=== PATIENT | male | born 1955 | race Two or more races ===

== ENCOUNTER 2021-07-31 13:54 | Inpatient (IN) | payer OTHER ==
[2021-07-31] MEDS ORDERED: VANCOMYCIN 1 GM in D5W (PRE-DOCKED) 1,000 MG/250 ML IVPB ONE (14:40)
[2021-07-31] MEDS ORDERED: PIPERACILLIN/TAZOB 2.25 GM 2.25 GM in DEXTROSE 5%-WATER - 50 ML IVPB ONE (14:40)
[2021-07-31] MEDS ORDERED: VANCOMYCIN/WATER 1,250 MG/250 ML BAG IVPB ONE (14:45)
[2021-07-31] MEDS ORDERED: PIPERACILLIN/TAZOB 4.5 GM 4.5 GM in DEXTROSE 5%-WATER 100 ML IVPB ONE (14:45)
[2021-07-31] MEDS ORDERED: PIPERACILLIN/TAZOB 4.5 GM 4.5 GM/100 ML BAG IVPB ONE (14:58)
[2021-07-31 15:05] LABS: HEMATOCRIT 21.8 % (35.4-49); MCH 29.3 pg (25.7-33.7); MCHC 31.7 g/dl (32.0-35.9); MEAN CELL VOLUME 92.6 fl (80-96); MEAN PLT VOLUME 8.8 fl (7.5-11.1); PLATELET COUNT 131 10^3/uL (134-434); RBC 2.35 M/mm3 (4.00-5.60); RDW 15.8 % (11.9-15.9); WHITE BLOOD COUNT 16.6 K/mm3 (4.0-10.0)
[2021-07-31 15:06] LABS: VENOUS BASE EXCESS -3.6 mmol/L (-2-2); VENOUS O2 SATURATION 82.6 % (70-80)
[2021-07-31 15:07] LABS: VENOUS PH 7.195 (7.310-7.410)
[2021-07-31 15:11] LABS: INR 1.05 (0.83-1.09); PROTHROMBIN TIME (PATIENT) 12.1 SEC (9.7-13.0)
[2021-07-31 15:12] LABS: HEMOGLOBIN 6.9 GM/dL (11.7-16.9)
[2021-07-31 15:27] LABS: ALBUMIN 1.9 g/dl (3.4-5.0); BLOOD UREA NITROGEN 73.9 mg/dL (7-18)
[2021-07-31 15:30] LABS: CREATININE 3.4 mg/dL (0.55-1.3)
[2021-07-31] MEDS ORDERED: ALBUTEROL SO4 2.5/IPRATROPIUM 0.5 INH SOL 3 ML VIAL.NEB. NEB ONE ×4 (15:30→16:12)
[2021-07-31 15:32] LABS: BILIRUBIN,TOTAL 0.5 mg/dL (0.2-1); TOT PROT 7.6 g/dl (6.4-8.2)
[2021-07-31 15:39] LABS: ANISOCYTOSIS 2+; MACROCYTOSIS 1+; PLATELET ESTIMATE NORMAL; TOXIC GRANULATION 1+
[2021-07-31 17:12] LABS: ARTERIAL BLD GAS O2 SATURATION 99.6 % (95-98); ARTERIAL BLOOD GAS BASE EXCESS 0 mmol/L (-2-2); ARTERIAL BLOOD GAS PO2 351.6 mmHg (80-100)
[2021-07-31 17:15] LABS: ARTERIAL BLOOD GAS pH 7.142 (7.350-7.450)
[2021-07-31 18:27] LABS: BASO % 1.4 % (0-2.0); EOS % 0.1 % (0-4.5); HEMATOCRIT 21.8 % (35.4-49); LYMPH % 4.2 % (8-40); MCH 28.9 pg (25.7-33.7); MCHC 31.2 g/dl (32.0-35.9); MEAN CELL VOLUME 92.7 fl (80-96); MEAN PLT VOLUME 8.9 fl (7.5-11.1); MONO % 6.8 % (3.8-10.2); NEUT % 87.5 % (42.8-82.8); PLATELET COUNT 126 10^3/uL (134-434); RBC 2.36 M/mm3 (4.00-5.60); RDW 15.5 % (11.9-15.9); WHITE BLOOD COUNT 14.2 K/mm3 (4.0-10.0)
[2021-07-31 18:33] LABS: HEMOGLOBIN 6.8 GM/dL (11.7-16.9)
[2021-07-31] MEDS ORDERED: PIPERACILLIN/TAZOB 3.375 GM 3.375 GM in DEXTROSE 5%-WATER - 50 ML IVPB SCH ×2 (20:15→22:00)
[2021-07-31 21:42] LABS: ARTERIAL BLD GAS O2 SATURATION 89.2 % (95-98); ARTERIAL BLOOD GAS BASE EXCESS -1.2 mmol/L (-2-2); ARTERIAL BLOOD GAS PO2 65.6 mmHg (80-100); ARTERIAL BLOOD GAS pH 7.254 (7.350-7.450)
[2021-07-31 21:56] LABS: VENT MODE A/C; VENT RATE 15
[2021-07-31] MEDS ORDERED: PIPERACILLIN/TAZOB 3.375 GM 3.375 GM/50 ML BAG IVPB ONE (22:54)
[2021-07-31] MEDS ORDERED: levETIRAcetam 500 MG/5 ML INJECTION VIAL IVPB ONE ×2 (22:54→23:03)
[2021-07-31] MEDS: SODIUM CHLORIDE 1,000 ML IV SCH (23:38)
[2021-08-01 07:27] LABS: HEMATOCRIT 22.2 % (35.4-49); HEMOGLOBIN 7.1 GM/dL (11.7-16.9); MCH 29.7 pg (25.7-33.7); MCHC 32.2 g/dl (32.0-35.9); MEAN CELL VOLUME 92.3 fl (80-96); MEAN PLT VOLUME 8.4 fl (7.5-11.1); PLATELET COUNT 118 10^3/uL (134-434); RBC 2.41 M/mm3 (4.00-5.60); RDW 15.1 % (11.9-15.9); WHITE BLOOD COUNT 9.6 K/mm3 (4.0-10.0)
[2021-08-01 07:40] LABS: CALCIUM 8.8 mg/dL (8.5-10.1)
[2021-08-01 07:41] LABS: BLOOD UREA NITROGEN 87.9 mg/dL (7-18); MAGNESIUM 2.9 mg/dL (1.8-2.4)
[2021-08-01 07:44] LABS: CREATININE 3.7 mg/dL (0.55-1.3); PHOSPHOROUS 4.7 mg/dL (2.5-4.9)
[2021-08-01] MEDS ORDERED: PIPERACILLIN/TAZOBACTAM 2.25 GM VIAL IVPB ONE ×4 (09:21→20:49)
[2021-08-01] MEDS ORDERED: DEXTROSE 5%-WATER - 50 ML IVPB ONE ×4 (09:21→20:49)
[2021-08-01] MEDS: AMIODARONE HCL 200 MG TABLET PEG SCH (09:30)
[2021-08-01] MEDS: ASPIRIN 81 MG CHEWABLE TABLETS PEG SCH (09:30)
[2021-08-01] MEDS: MUPIROCIN 2% TOPICAL OINTMENT FOR DECOLONIZATION NS SCH ×2 (09:30→21:14)
[2021-08-01] MEDS: PIPERACILLIN/TAZOB 2.25 GM 2.25 GM in DEXTROSE 5%-WATER - 50 ML IVPB SCH ×3 (09:30→17:57)
[2021-08-01 09:51] LABS: ANISOCYTOSIS 0; MACROCYTOSIS 0; PLATELET ESTIMATE DECREASED
[2021-08-01] MEDS ORDERED: PANTOPRAZOLE SODIUM 40 MG in SODIUM CHLORIDE 100 ML IVPB SCH (10:00)
[2021-08-01] MEDS ORDERED: PIPERACILLIN/TAZOB 2.25 GM 2.25 GM in DEXTROSE 5%-WATER - 50 ML IVPB SCH (10:00)
[2021-08-01] MEDS ORDERED: ASPIRIN 81 MG CHEWABLE TABLETS PO SCH (10:00)
[2021-08-01] MEDS ORDERED: PANTOPRAZOLE SODIUM 40 MG VIAL IVPB SCH (12:00)
[2021-08-01] MEDS: PANTOPRAZOLE SODIUM 40 MG VIAL IVPUSH SCH (12:22)
[2021-08-01] MEDS ORDERED: ASPIRIN 81 MG CHEWABLE TABLETS PO ONE (19:01)
[2021-08-01] MEDS: SODIUM CHLORIDE 1,000 ML IV SCH (21:13)
[2021-08-01] MEDS: CHLORHEXIDINE GLUCONATE 4% CLEANSER FOR DECOLONIZATION TP SCH (21:14)
[2021-08-01] MEDS: ATORVASTATIN CA 40 MG TABLET (FP) PEG SCH (21:14)
[2021-08-02] MEDS ORDERED: PIPERACILLIN/TAZOBACTAM 2.25 GM VIAL IVPB ONE ×2 (00:58→19:01)
[2021-08-02] MEDS ORDERED: DEXTROSE 5%-WATER - 50 ML IVPB ONE ×2 (00:58→19:01)
[2021-08-02] MEDS: PIPERACILLIN/TAZOB 2.25 GM 2.25 GM in DEXTROSE 5%-WATER - 50 ML IVPB SCH ×3 (01:16→19:04)
[2021-08-02] MEDS ORDERED: ALBUTEROL SO4 2.5/IPRATROPIUM 0.5 INH SOL 3 ML VIAL.NEB. NEB PRN (06:15)
[2021-08-02 07:12] LABS: HEMATOCRIT 20.9 % (35.4-49); MCH 29.2 pg (25.7-33.7); MCHC 31.7 g/dl (32.0-35.9); MEAN CELL VOLUME 92.1 fl (80-96); MEAN PLT VOLUME 8.9 fl (7.5-11.1); PLATELET COUNT 139 10^3/uL (134-434); RBC 2.27 M/mm3 (4.00-5.60); RDW 15.9 % (11.9-15.9); WHITE BLOOD COUNT 11.9 K/mm3 (4.0-10.0)
[2021-08-02 07:16] LABS: MAGNESIUM 2.9 mg/dL (1.8-2.4)
[2021-08-02 07:17] LABS: BLOOD UREA NITROGEN 102.3 mg/dL (7-18); INR 1.1 (0.83-1.09); PROTHROMBIN TIME (PATIENT) 12.7 SEC (9.7-13.0)
[2021-08-02 07:20] LABS: CREATININE 4.3 mg/dL (0.55-1.3); PHOSPHOROUS 4.9 mg/dL (2.5-4.9)
[2021-08-02 07:28] LABS: HEMOGLOBIN 6.6 GM/dL (11.7-16.9)
[2021-08-02] MEDS: THIAMINE HCL 100 MG TABLET (FP) NR SCH (11:04)
[2021-08-02] MEDS: FOLIC ACID 1 MG TABLET (FP) PEG SCH (11:04)
[2021-08-02] MEDS: ASPIRIN 81 MG CHEWABLE TABLETS PEG SCH (11:04)
[2021-08-02] MEDS: AMIODARONE HCL 200 MG TABLET PEG SCH (11:04)
[2021-08-02] MEDS: PANTOPRAZOLE SODIUM 40 MG VIAL IVPUSH SCH (11:04)
[2021-08-02] MEDS: MUPIROCIN 2% TOPICAL OINTMENT FOR DECOLONIZATION NS SCH ×2 (11:04→22:04)
[2021-08-02] MEDS ORDERED: SODIUM CHLORIDE 250 ML IV PRN (19:34)
[2021-08-02] MEDS: CHLORHEXIDINE GLUCONATE 4% CLEANSER FOR DECOLONIZATION TP SCH (22:04)
[2021-08-02] MEDS: ATORVASTATIN CA 40 MG TABLET (FP) PEG SCH (22:04)
[2021-08-03] MEDS ORDERED: DEXTROSE 5%-WATER - 50 ML IVPB ONE ×4 (01:26→21:15)
[2021-08-03] MEDS ORDERED: PIPERACILLIN/TAZOBACTAM 2.25 GM VIAL IVPB ONE ×4 (01:26→21:15)
[2021-08-03] MEDS: PIPERACILLIN/TAZOB 2.25 GM 2.25 GM in DEXTROSE 5%-WATER - 50 ML IVPB SCH ×3 (01:26→17:14)
[2021-08-03 07:44] LABS: BASO % 1.4 % (0-2.0); EOS % 3.3 % (0-4.5); HEMATOCRIT 22.3 % (35.4-49); HEMOGLOBIN 7.4 GM/dL (11.7-16.9); LYMPH % 11.1 % (8-40); MCH 30.2 pg (25.7-33.7); MCHC 33.3 g/dl (32.0-35.9); MEAN CELL VOLUME 90.9 fl (80-96); MEAN PLT VOLUME 8.4 fl (7.5-11.1); MONO % 6.3 % (3.8-10.2); NEUT % 77.9 % (42.8-82.8); PLATELET COUNT 119 10^3/uL (134-434); RBC 2.46 M/mm3 (4.00-5.60); RDW 15.5 % (11.9-15.9); WHITE BLOOD COUNT 8.7 K/mm3 (4.0-10.0)
[2021-08-03 08:05] LABS: CHLORIDE 107 mmol/L (98-107); SODIUM 142 mmol/L (136-145)
[2021-08-03 08:13] LABS: CALCIUM 9.1 mg/dL (8.5-10.1)
[2021-08-03 08:14] LABS: ALBUMIN 1.7 g/dl (3.4-5.0); ANION GAP 11 MMOL/L (8-16); CO2 25 mmol/L (21-32); GLUCOSE,RANDOM 94 mg/dL (74-106); MAGNESIUM 3.1 mg/dL (1.8-2.4)
[2021-08-03 08:17] LABS: CREATININE 4.9 mg/dL (0.55-1.3); SGOT/AST 7 U/L (15-37); SGPT/ALT 10 U/L (13-61)
[2021-08-03 08:19] LABS: BILIRUBIN,TOTAL 0.6 mg/dL (0.2-1); TOT PROT 6.6 g/dl (6.4-8.2)
[2021-08-03 08:20] LABS: ALK PHOS 128 U/L (45-117)
[2021-08-03 08:24] LABS: BLOOD UREA NITROGEN 119.8 mg/dL (7-18)
[2021-08-03 10:01] VITALS: BMI 21.4
[2021-08-03] MEDS: PANTOPRAZOLE SODIUM 40 MG VIAL IVPUSH SCH (10:05)
[2021-08-03] MEDS: FOLIC ACID 1 MG TABLET (FP) PEG SCH (10:05)
[2021-08-03] MEDS: ASPIRIN 81 MG CHEWABLE TABLETS PEG SCH (10:05)
[2021-08-03] MEDS: AMIODARONE HCL 200 MG TABLET PEG SCH (10:05)
[2021-08-03] MEDS: THIAMINE HCL 100 MG TABLET (FP) NR SCH (10:05)
[2021-08-03] MEDS: MUPIROCIN 2% TOPICAL OINTMENT FOR DECOLONIZATION NS SCH ×2 (10:06→21:26)
[2021-08-03] MEDS ORDERED: RAPID SEQUENCE INTUBATION KIT NR ONE (11:23)
[2021-08-03] MEDS ORDERED: MIDAZOLAM HCL 5 MG/1 ML Single Dose Vial ONE (11:24)
[2021-08-03] MEDS ORDERED: ROCURONIUM BROMIDE 50 MG/5 ML VIAL IV ONE (11:27)
[2021-08-03] MEDS ORDERED: MIDAZOLAM IN 0.9 % SOD.CHLORID 1 MG/1 ML PLAST..BAG ONE (12:14)
[2021-08-03] MEDS ORDERED: MIDAZOLAM 100 MG in SODIUM CHLORIDE 100 ML IVPB SCH (12:15)
[2021-08-03] MEDS ORDERED: MIDAZOLAM HCL 5 MG/1 ML Single Dose Vial IVPUSH ONE (12:15)
[2021-08-03] MEDS ORDERED: PROPOFOL 200 MG/20 ML VIAL IVPUSH ONE (12:15)
[2021-08-03] MEDS ORDERED: FLU VACC QS2021-22(6MOS UP)/PF 60 MCG/0.5 ML SYRINGE IM ONE (13:41)
[2021-08-03] MEDS ORDERED: PNEUMOC 13-VAL CONJ-DIP CRM/PF 0.5 ML DISP.SYRIN IM ONE (13:42)
[2021-08-03] MEDS: MIDAZOLAM IN 0.9 % SOD.CHLORID 100 MG/100 ML PLAST..BAG IVPB SCH (14:57)
[2021-08-03] MEDS: ATORVASTATIN CA 40 MG TABLET (FP) PEG SCH (21:21)
[2021-08-03] MEDS: CHLORHEXIDINE GLUCONATE 4% CLEANSER FOR DECOLONIZATION TP SCH (21:26)
[2021-08-04] MEDS: PIPERACILLIN/TAZOB 2.25 GM 2.25 GM in DEXTROSE 5%-WATER - 50 ML IVPB SCH ×2 (00:59→09:51)
[2021-08-04 07:32] LABS: BASO % 0.4 % (0-2.0); EOS % 5.5 % (0-4.5); HEMATOCRIT 20.3 % (35.4-49); LYMPH % 15.6 % (8-40); MCH 29.9 pg (25.7-33.7); MCHC 32.7 g/dl (32.0-35.9); MEAN CELL VOLUME 91.4 fl (80-96); MEAN PLT VOLUME 8.8 fl (7.5-11.1); MONO % 4.2 % (3.8-10.2); NEUT % 74.3 % (42.8-82.8); PLATELET COUNT 124 10^3/uL (134-434); RBC 2.22 M/mm3 (4.00-5.60); RDW 15.2 % (11.9-15.9); WHITE BLOOD COUNT 6.3 K/mm3 (4.0-10.0)
[2021-08-04 07:44] LABS: CHLORIDE 108 mmol/L (98-107); SODIUM 143 mmol/L (136-145)
[2021-08-04 07:46] LABS: ALBUMIN 1.5 g/dl (3.4-5.0); ANION GAP 14 MMOL/L (8-16); CALCIUM 8.9 mg/dL (8.5-10.1); CO2 21 mmol/L (21-32); GLUCOSE,RANDOM 69 mg/dL (74-106); MAGNESIUM 2.9 mg/dL (1.8-2.4)
[2021-08-04 07:49] LABS: CREATININE 5.6 mg/dL (0.55-1.3); PHOSPHOROUS 6.4 mg/dL (2.5-4.9); SGOT/AST 25 U/L (15-37); SGPT/ALT 15 U/L (13-61)
[2021-08-04 07:51] LABS: BILIRUBIN,TOTAL 0.6 mg/dL (0.2-1); TOT PROT 6.2 g/dl (6.4-8.2)
[2021-08-04 07:54] LABS: ALK PHOS 459 U/L (45-117); BLOOD UREA NITROGEN 125.9 mg/dL (7-18)
[2021-08-04 08:16] LABS: HEMOGLOBIN 6.6 GM/dL (11.7-16.9)
[2021-08-04] MEDS ORDERED: DEXTROSE 5%-WATER - 50 ML IVPB ONE (09:45)
[2021-08-04] MEDS ORDERED: PIPERACILLIN/TAZOBACTAM 2.25 GM VIAL IVPB ONE (09:45)
[2021-08-04] MEDS: PANTOPRAZOLE SODIUM 40 MG VIAL IVPUSH SCH (09:50)
[2021-08-04] MEDS: THIAMINE HCL 100 MG TABLET (FP) NR SCH (09:50)
[2021-08-04] MEDS: AMINO ACIDS/PROTEIN HYDROLYS 30 ML LIQUID.PKT PEG SCH (09:50)
[2021-08-04] MEDS: ASPIRIN 81 MG CHEWABLE TABLETS PEG SCH (09:50)
[2021-08-04] MEDS: VITAMIN B COMP W-C 1 EA TABLET (NEPHRO-VITE) PO SCH (09:50)
[2021-08-04] MEDS: AMIODARONE HCL 200 MG TABLET PEG SCH (09:50)
[2021-08-04] MEDS: FOLIC ACID 1 MG TABLET (FP) PEG SCH (09:50)
[2021-08-04] MEDS: MUPIROCIN 2% TOPICAL OINTMENT FOR DECOLONIZATION NS SCH ×2 (09:51→21:48)
[2021-08-04] MEDS ORDERED: SODIUM CHLORIDE 500 ML IV STA (10:09)
[2021-08-04] MEDS ORDERED: SODIUM CHLORIDE 1,000 ML IV SCH (12:15)
[2021-08-04] MEDS: MIDAZOLAM IN 0.9 % SOD.CHLORID 100 MG/100 ML PLAST..BAG IVPB SCH (13:30)
[2021-08-04 14:57] LABS: HEMATOCRIT 22.3 % (35.4-49); HEMOGLOBIN 7.4 GM/dL (11.7-16.9); MCH 29.6 pg (25.7-33.7); MCHC 33.2 g/dl (32.0-35.9); MEAN CELL VOLUME 89.1 fl (80-96); MEAN PLT VOLUME 8.1 fl (7.5-11.1); PLATELET COUNT 112 10^3/uL (134-434); RBC 2.51 M/mm3 (4.00-5.60); RDW 14.7 % (11.9-15.9); WHITE BLOOD COUNT 3.9 K/mm3 (4.0-10.0)
[2021-08-04] MEDS: CHLORHEXIDINE GLUCONATE 4% CLEANSER FOR DECOLONIZATION TP SCH (21:48)
[2021-08-04] MEDS: AMINO ACIDS 4.25%/D5W 1,000 ML IV SCH (21:48)
[2021-08-04] MEDS: ATORVASTATIN CA 40 MG TABLET (FP) PEG SCH (21:48)
[2021-08-05 07:04] LABS: BASO % 0.5 % (0-2.0); EOS % 7.9 % (0-4.5); HEMATOCRIT 23.5 % (35.4-49); HEMOGLOBIN 7.7 GM/dL (11.7-16.9); LYMPH % 16.6 % (8-40); MCH 29.5 pg (25.7-33.7); MCHC 32.6 g/dl (32.0-35.9); MEAN CELL VOLUME 90.5 fl (80-96); MEAN PLT VOLUME 8.9 fl (7.5-11.1); MONO % 7.6 % (3.8-10.2); NEUT % 67.4 % (42.8-82.8); PLATELET COUNT 117 10^3/uL (134-434); RBC 2.59 M/mm3 (4.00-5.60); WHITE BLOOD COUNT 4.8 K/mm3 (4.0-10.0)
[2021-08-05 07:17] LABS: ALBUMIN 1.4 g/dl (3.4-5.0); CALCIUM 7.8 mg/dL (8.5-10.1); MAGNESIUM 2.1 mg/dL (1.8-2.4)
[2021-08-05 07:20] LABS: CREATININE 2.7 mg/dL (0.55-1.3)
[2021-08-05 07:21] LABS: PHOSPHOROUS 3.6 mg/dL (2.5-4.9)
[2021-08-05 07:22] LABS: BILIRUBIN,TOTAL 0.5 mg/dL (0.2-1); TOT PROT 5.7 g/dl (6.4-8.2)
[2021-08-05] MEDS ORDERED: POTASSIUM CHLORIDE 20 MEQ PREMIX IVPB 100 ML IVPB ONE (08:19)
[2021-08-05 08:33] LABS: BLOOD UREA NITROGEN 46.6 mg/dL (7-18)
[2021-08-05] MEDS: AMINO ACIDS/PROTEIN HYDROLYS 30 ML LIQUID.PKT PEG SCH (09:55)
[2021-08-05] MEDS: AMIODARONE HCL 200 MG TABLET PEG SCH (09:55)
[2021-08-05] MEDS: VITAMIN B COMP W-C 1 EA TABLET (NEPHRO-VITE) PO SCH (09:55)
[2021-08-05] MEDS: KCL 10 MEQ IVPB 10 MEQ/100 ML INFUS.BAG IVPB SCH ×2 (09:55→11:00)
[2021-08-05] MEDS: PANTOPRAZOLE SODIUM 40 MG VIAL IVPUSH SCH (09:55)
[2021-08-05] MEDS: FOLIC ACID 1 MG TABLET (FP) PEG SCH (09:56)
[2021-08-05] MEDS: THIAMINE HCL 100 MG TABLET (FP) NR SCH (09:56)
[2021-08-05] MEDS: MUPIROCIN 2% TOPICAL OINTMENT FOR DECOLONIZATION NS SCH ×2 (09:56→23:12)
[2021-08-05] MEDS: PROPOFOL 1,000,000 MCG/100 ML VIAL IVPB SCH (09:56)
[2021-08-05] MEDS ORDERED: POTASSIUM CHLORIDE ORAL LIQUID 20 MEQ/15 ML PO ONE (13:00)
[2021-08-05] MEDS: AMINO ACIDS 4.25%/D5W 1,000 ML IV SCH (22:00)
[2021-08-05] MEDS: ATORVASTATIN CA 40 MG TABLET (FP) PEG SCH (23:00)
[2021-08-05] MEDS: CHLORHEXIDINE GLUCONATE 4% CLEANSER FOR DECOLONIZATION TP SCH (23:12)
[2021-08-06 06:55] LABS: BASO % 1.2 % (0-2.0); EOS % 7.6 % (0-4.5); HEMATOCRIT 22.8 % (35.4-49); HEMOGLOBIN 7.8 GM/dL (11.7-16.9); LYMPH % 18.8 % (8-40); MCH 30.5 pg (25.7-33.7); MCHC 33.9 g/dl (32.0-35.9); MEAN PLT VOLUME 8.3 fl (7.5-11.1); MONO % 7.6 % (3.8-10.2); NEUT % 64.8 % (42.8-82.8); PLATELET COUNT 99 10^3/uL (134-434); RBC 2.54 M/mm3 (4.00-5.60); RDW 14.8 % (11.9-15.9)
[2021-08-06] MEDS ORDERED: SODIUM CHLORIDE 250 ML IV PRN (07:00)
[2021-08-06 07:20] LABS: CALCIUM 8.2 mg/dL (8.5-10.1)
[2021-08-06 07:21] LABS: ALBUMIN 1.3 g/dl (3.4-5.0); BLOOD UREA NITROGEN 60.2 mg/dL (7-18)
[2021-08-06 07:24] LABS: BILIRUBIN,TOTAL 0.6 mg/dL (0.2-1); CREATININE 3.4 mg/dL (0.55-1.3); PHOSPHOROUS 4.6 mg/dL (2.5-4.9); TOT PROT 5.9 g/dl (6.4-8.2)
[2021-08-06] MEDS: AMINO ACIDS/PROTEIN HYDROLYS 30 ML LIQUID.PKT PEG SCH (07:55)
[2021-08-06] MEDS ORDERED: EPOETIN ALFA-EPBX 10,000 UNIT/ML VIAL IVPUSH ONE (08:30)
[2021-08-06] MEDS: PROPOFOL 1,000,000 MCG/100 ML VIAL IVPB SCH (09:50)
[2021-08-06] MEDS: AMIODARONE HCL 200 MG TABLET PEG SCH (11:17)
[2021-08-06] MEDS: FOLIC ACID 1 MG TABLET (FP) PEG SCH (11:18)
[2021-08-06] MEDS: VITAMIN B COMP W-C 1 EA TABLET (NEPHRO-VITE) PO SCH (11:18)
[2021-08-06] MEDS: THIAMINE HCL 100 MG TABLET (FP) NR SCH (11:19)
[2021-08-06] MEDS: PANTOPRAZOLE SODIUM 40 MG VIAL IVPUSH SCH (11:19)
[2021-08-06] MEDS: MIDAZOLAM IN 0.9 % SOD.CHLORID 100 MG/100 ML PLAST..BAG IVPB SCH (11:29)
[2021-08-06] MEDS ORDERED: POTASSIUM CHLORIDE ORAL LIQUID 20 MEQ/15 ML PO ONE (14:25)
[2021-08-06] MEDS: AMINO ACIDS 4.25%/D5W 1,000 ML IV SCH (23:00)
[2021-08-06] MEDS: CHLORHEXIDINE GLUCONATE 4% CLEANSER FOR DECOLONIZATION TP SCH (23:27)
[2021-08-06] MEDS: ATORVASTATIN CA 40 MG TABLET (FP) PEG SCH (23:27)
[2021-08-07 07:52] LABS: HEMATOCRIT 22.2 % (35.4-49); HEMOGLOBIN 7.4 GM/dL (11.7-16.9); MCH 30.2 pg (25.7-33.7); MCHC 33.4 g/dl (32.0-35.9); MEAN CELL VOLUME 90.3 fl (80-96); MEAN PLT VOLUME 8.6 fl (7.5-11.1); PLATELET COUNT 101 10^3/uL (134-434); RBC 2.46 M/mm3 (4.00-5.60); RDW 14.7 % (11.9-15.9); WHITE BLOOD COUNT 6.3 K/mm3 (4.0-10.0)
[2021-08-07 08:20] LABS: ALBUMIN 1.5 g/dl (3.4-5.0); CALCIUM 8.4 mg/dL (8.5-10.1); MAGNESIUM 1.8 mg/dL (1.8-2.4)
[2021-08-07 08:22] LABS: CREATININE 2.2 mg/dL (0.55-1.3); PHOSPHOROUS 2.4 mg/dL (2.5-4.9)
[2021-08-07 08:24] LABS: BILIRUBIN,TOTAL 0.4 mg/dL (0.2-1); TOT PROT 6.2 g/dl (6.4-8.2)
[2021-08-07 08:33] LABS: BLOOD UREA NITROGEN 30.9 mg/dL (7-18)
[2021-08-07] MEDS: AMINO ACIDS/PROTEIN HYDROLYS 30 ML LIQUID.PKT PEG SCH (08:46)
[2021-08-07] MEDS: AMIODARONE HCL 200 MG TABLET PEG SCH (09:22)
[2021-08-07] MEDS: PANTOPRAZOLE SODIUM 40 MG VIAL IVPUSH SCH (09:22)
[2021-08-07] MEDS: FOLIC ACID 1 MG TABLET (FP) PEG SCH (09:22)
[2021-08-07] MEDS: VITAMIN B COMP W-C 1 EA TABLET (NEPHRO-VITE) PO SCH (09:22)
[2021-08-07] MEDS: THIAMINE HCL 100 MG TABLET (FP) NR SCH (09:22)
[2021-08-07] MEDS: MIDAZOLAM IN 0.9 % SOD.CHLORID 100 MG/100 ML PLAST..BAG IVPB SCH (16:11)
[2021-08-07] MEDS: AMINO ACIDS 4.25%/D5W 1,000 ML IV SCH (21:39)
[2021-08-07] MEDS: ATORVASTATIN CA 40 MG TABLET (FP) PEG SCH (21:39)
[2021-08-07] MEDS: CHLORHEXIDINE GLUCONATE 4% CLEANSER FOR DECOLONIZATION TP SCH (21:40)
[2021-08-08] MEDS: PROPOFOL 1,000,000 MCG/100 ML VIAL IVPB SCH ×2 (01:00→15:00)
[2021-08-08] MEDS ORDERED: SODIUM CHLORIDE 250 ML IV PRN (07:00)
[2021-08-08] MEDS ORDERED: EPOETIN ALFA-EPBX 10,000 UNIT/ML VIAL SQ ONE (07:00)
[2021-08-08 07:34] LABS: CALCIUM 8.5 mg/dL (8.5-10.1)
[2021-08-08 07:36] LABS: ALBUMIN 1.5 g/dl (3.4-5.0); BLOOD UREA NITROGEN 44.5 mg/dL (7-18); MAGNESIUM 1.8 mg/dL (1.8-2.4)
[2021-08-08 07:38] LABS: CREATININE 2.8 mg/dL (0.55-1.3); PHOSPHOROUS 3.3 mg/dL (2.5-4.9)
[2021-08-08 07:40] LABS: BILIRUBIN,TOTAL 0.3 mg/dL (0.2-1); TOT PROT 6.4 g/dl (6.4-8.2)
[2021-08-08 07:45] LABS: HEMOGLOBIN 8.5 GM/dL (11.7-16.9); MCH 30.6 pg (25.7-33.7); MCHC 33.9 g/dl (32.0-35.9); MEAN CELL VOLUME 90.2 fl (80-96); PLATELET COUNT 100 10^3/uL (134-434); RBC 2.77 M/mm3 (4.00-5.60); RDW 14.5 % (11.9-15.9)
[2021-08-08] MEDS: AMINO ACIDS/PROTEIN HYDROLYS 30 ML LIQUID.PKT PEG SCH (08:11)
[2021-08-08] MEDS: VITAMIN B COMP W-C 1 EA TABLET (NEPHRO-VITE) PO SCH (10:23)
[2021-08-08] MEDS: THIAMINE HCL 100 MG TABLET (FP) NR SCH (10:23)
[2021-08-08] MEDS: AMIODARONE HCL 200 MG TABLET PEG SCH (10:23)
[2021-08-08] MEDS: PANTOPRAZOLE SODIUM 40 MG VIAL IVPUSH SCH (10:23)
[2021-08-08] MEDS: FOLIC ACID 1 MG TABLET (FP) PEG SCH (10:23)
[2021-08-08] MEDS: MIDAZOLAM IN 0.9 % SOD.CHLORID 100 MG/100 ML PLAST..BAG IVPB SCH ×2 (11:15→15:00)
[2021-08-08] MEDS ORDERED: SODIUM CHLORIDE 1,000 ML IV STA (18:56)
[2021-08-08] MEDS ORDERED: LACTATED RINGERS SOLUTION 1,000 ML/1,000 ML INFUS.BAG IV SCH (19:15)
[2021-08-08] MEDS: AMINO ACIDS 4.25%/D5W 1,000 ML IV SCH (21:24)
[2021-08-08] MEDS: CHLORHEXIDINE GLUCONATE 4% CLEANSER FOR DECOLONIZATION TP SCH (21:25)
[2021-08-08] MEDS: ATORVASTATIN CA 40 MG TABLET (FP) PEG SCH (21:25)
[2021-08-09] MEDS ORDERED: LACTATED RINGERS SOLUTION 1,000 ML/1,000 ML INFUS.BAG IV ONE (00:07)
[2021-08-09] MEDS ORDERED: LACTATED RINGERS SOLUTION 1,000 ML/1,000 ML INFUS.BAG IV SCH (00:09)
[2021-08-09] MEDS: LACTATED RINGERS SOLUTION 1,000 ML/1,000 ML INFUS.BAG IV SCH (04:25)
[2021-08-09] MEDS: PROPOFOL 1,000,000 MCG/100 ML VIAL IVPB SCH (07:48)
[2021-08-09] MEDS: AMINO ACIDS/PROTEIN HYDROLYS 30 ML LIQUID.PKT PEG SCH (07:48)
[2021-08-09 08:07] LABS: ALBUMIN 1.4 g/dl (3.4-5.0); BLOOD UREA NITROGEN 27.8 mg/dL (7-18); CALCIUM 8.2 mg/dL (8.5-10.1); MAGNESIUM 1.5 mg/dL (1.8-2.4)
[2021-08-09 08:08] LABS: HEMATOCRIT 22.1 % (35.4-49); HEMOGLOBIN 7.5 GM/dL (11.7-16.9); MCH 30.5 pg (25.7-33.7); MCHC 33.7 g/dl (32.0-35.9); MEAN CELL VOLUME 90.6 fl (80-96); MEAN PLT VOLUME 8.5 fl (7.5-11.1); PLATELET COUNT 86 10^3/uL (134-434); RBC 2.44 M/mm3 (4.00-5.60); RDW 14.5 % (11.9-15.9); WHITE BLOOD COUNT 8.7 K/mm3 (4.0-10.0)
[2021-08-09 08:10] LABS: PHOSPHOROUS 1.5 mg/dL (2.5-4.9)
[2021-08-09 08:12] LABS: BILIRUBIN,TOTAL 0.4 mg/dL (0.2-1)
[2021-08-09] MEDS: AMIODARONE HCL 200 MG TABLET PEG SCH (09:31)
[2021-08-09] MEDS: KCL 10 MEQ IVPB 10 MEQ/100 ML INFUS.BAG IVPB SCH ×2 (09:31→10:40)
[2021-08-09] MEDS: THIAMINE HCL 100 MG TABLET (FP) NR SCH (09:32)
[2021-08-09] MEDS: VITAMIN B COMP W-C 1 EA TABLET (NEPHRO-VITE) PO SCH (09:32)
[2021-08-09] MEDS: FOLIC ACID 1 MG TABLET (FP) PEG SCH (09:32)
[2021-08-09] MEDS: PANTOPRAZOLE SODIUM 40 MG VIAL IVPUSH SCH (09:32)
[2021-08-09] MEDS: MIDAZOLAM IN 0.9 % SOD.CHLORID 100 MG/100 ML PLAST..BAG IVPB SCH (20:09)
[2021-08-09] MEDS: AMINO ACIDS 4.25%/D5W 1,000 ML IV SCH (21:54)
[2021-08-09] MEDS: ATORVASTATIN CA 40 MG TABLET (FP) PEG SCH (21:55)
[2021-08-09] MEDS: CHLORHEXIDINE GLUCONATE 4% CLEANSER FOR DECOLONIZATION TP SCH (21:55)
[2021-08-10] MEDS: LACTATED RINGERS SOLUTION 1,000 ML/1,000 ML INFUS.BAG IV SCH (07:00)
[2021-08-10 07:24] LABS: CHLORIDE 103 mmol/L (98-107); SODIUM 136 mmol/L (136-145)
[2021-08-10 07:26] LABS: ALBUMIN 1.3 g/dl (3.4-5.0); ANION GAP 8 MMOL/L (8-16); BLOOD UREA NITROGEN 38.9 mg/dL (7-18); CALCIUM 8.2 mg/dL (8.5-10.1); CO2 25 mmol/L (21-32); GLUCOSE,RANDOM 90 mg/dL (74-106); MAGNESIUM 1.5 mg/dL (1.8-2.4)
[2021-08-10 07:29] LABS: CREATININE 2.5 mg/dL (0.55-1.3); SGOT/AST 8 U/L (15-37); SGPT/ALT < 6 U/L (13-61)
[2021-08-10 07:31] LABS: BILIRUBIN,TOTAL 0.4 mg/dL (0.2-1)
[2021-08-10 07:32] LABS: ALK PHOS 113 U/L (45-117)
[2021-08-10] MEDS: AMINO ACIDS/PROTEIN HYDROLYS 30 ML LIQUID.PKT PEG SCH (08:50)
[2021-08-10] MEDS: PROPOFOL 1,000,000 MCG/100 ML VIAL IVPB SCH (10:21)
[2021-08-10] MEDS: ASPIRIN 81 MG CHEWABLE TABLETS PEG SCH (10:22)
[2021-08-10] MEDS: FOLIC ACID 1 MG TABLET (FP) PEG SCH (10:22)
[2021-08-10] MEDS: VITAMIN B COMP W-C 1 EA TABLET (NEPHRO-VITE) PO SCH (10:22)
[2021-08-10] MEDS: PANTOPRAZOLE SODIUM 40 MG VIAL IVPUSH SCH (10:22)
[2021-08-10] MEDS: AMIODARONE HCL 200 MG TABLET PEG SCH (10:23)
[2021-08-10] MEDS: THIAMINE HCL 100 MG TABLET (FP) NR SCH (10:23)
[2021-08-10] MEDS: MIDAZOLAM IN 0.9 % SOD.CHLORID 100 MG/100 ML PLAST..BAG IVPB SCH ×2 (17:30→22:00)
[2021-08-10] MEDS: CHLORHEXIDINE GLUCONATE 4% CLEANSER FOR DECOLONIZATION TP SCH (21:50)
[2021-08-10] MEDS: ATORVASTATIN CA 40 MG TABLET (FP) PEG SCH (21:50)
[2021-08-11] MEDS: LACTATED RINGERS SOLUTION 1,000 ML/1,000 ML INFUS.BAG IV SCH ×2 (03:07→11:07)
[2021-08-11] MEDS: PROPOFOL 1,000,000 MCG/100 ML VIAL IVPB SCH ×2 (06:57→21:40)
[2021-08-11] MEDS ORDERED: SODIUM CHLORIDE 250 ML IV PRN (07:09)
[2021-08-11 07:19] LABS: HEMATOCRIT 21.1 % (35.4-49); MCH 30.2 pg (25.7-33.7); MCHC 33.4 g/dl (32.0-35.9); MEAN CELL VOLUME 90.5 fl (80-96); MEAN PLT VOLUME 8.4 fl (7.5-11.1); PLATELET COUNT 77 10^3/uL (134-434); RBC 2.33 M/mm3 (4.00-5.60); RDW 15.2 % (11.9-15.9); WHITE BLOOD COUNT 6.3 K/mm3 (4.0-10.0)
[2021-08-11 07:44] LABS: BLOOD UREA NITROGEN 48.4 mg/dL (7-18); CALCIUM 8.2 mg/dL (8.5-10.1); MAGNESIUM 1.5 mg/dL (1.8-2.4)
[2021-08-11 07:47] LABS: CREATININE 2.9 mg/dL (0.55-1.3); PHOSPHOROUS 3.3 mg/dL (2.5-4.9)
[2021-08-11 08:18] LABS: INR 1.22 (0.83-1.09); PROTHROMBIN TIME (PATIENT) 14.1 SEC (9.7-13.0)
[2021-08-11 08:20] LABS: ACTIVATED PTT 32.2 SECONDS (25.2-36.5)
[2021-08-11] MEDS ORDERED: EPOETIN ALFA-EPBX 10,000 UNIT/ML VIAL SQ ONE (09:00)
[2021-08-11] MEDS ORDERED: MAGNESIUM SULF 50% (8.12 MEQ/2 ML-1 GM VIAL) IVPB ONE (09:35)
[2021-08-11] MEDS: ALBUMIN HUMAN 25% 12.5 GM/50 ML VIAL IV SCH ×3 (09:40→10:42)
[2021-08-11] MEDS: PANTOPRAZOLE SODIUM 40 MG VIAL IVPUSH SCH (11:05)
[2021-08-11] MEDS: THIAMINE HCL 100 MG TABLET (FP) NR SCH (11:06)
[2021-08-11] MEDS: AMIODARONE HCL 200 MG TABLET PEG SCH (11:06)
[2021-08-11] MEDS: ASPIRIN 81 MG CHEWABLE TABLETS PEG SCH (11:06)
[2021-08-11] MEDS: VITAMIN B COMP W-C 1 EA TABLET (NEPHRO-VITE) PO SCH (11:06)
[2021-08-11] MEDS: metoPROLOL SUCCINATE 25 MG TAB.SR.24H (FP) PO SCH (11:06)
[2021-08-11] MEDS: FOLIC ACID 1 MG TABLET (FP) PEG SCH (11:06)
[2021-08-11] MEDS: AMINO ACIDS/PROTEIN HYDROLYS 30 ML LIQUID.PKT PEG SCH (11:07)
[2021-08-11] MEDS ORDERED: MAGNESIUM SULFATE IN WATER 2 GM/50 ML IVPB IVPB ONE (12:51)
[2021-08-11] MEDS: KCL 10 MEQ IVPB 10 MEQ/100 ML INFUS.BAG IVPB SCH ×2 (13:08→15:43)
[2021-08-11] MEDS: HEPARIN NA (PORCINE) 5,000 UNITS/ML 1ML VIAL SQ SCH ×2 (14:58→21:40)
[2021-08-11] MEDS: MIDAZOLAM IN 0.9 % SOD.CHLORID 100 MG/100 ML PLAST..BAG IVPB SCH ×3 (16:32→23:00)
[2021-08-11] MEDS: CHLORHEXIDINE GLUCONATE 4% CLEANSER FOR DECOLONIZATION TP SCH (21:40)
[2021-08-11] MEDS: ATORVASTATIN CA 40 MG TABLET (FP) PEG SCH (21:40)
[2021-08-12 07:27] LABS: HEMOGLOBIN 7.3 GM/dL (11.7-16.9); MCHC 33.1 g/dl (32.0-35.9); MEAN CELL VOLUME 90.8 fl (80-96); MEAN PLT VOLUME 8.4 fl (7.5-11.1); PLATELET COUNT 84 10^3/uL (134-434); RBC 2.43 M/mm3 (4.00-5.60); RDW 14.7 % (11.9-15.9); WHITE BLOOD COUNT 6.4 K/mm3 (4.0-10.0)
[2021-08-12 07:58] LABS: CALCIUM 8.5 mg/dL (8.5-10.1)
[2021-08-12 07:59] LABS: BLOOD UREA NITROGEN 25.2 mg/dL (7-18); MAGNESIUM 2.5 mg/dL (1.8-2.4)
[2021-08-12 08:02] LABS: CREATININE 1.9 mg/dL (0.55-1.3); PHOSPHOROUS 2.4 mg/dL (2.5-4.9)
[2021-08-12] MEDS ORDERED: MIDAZOLAM HCL 5 MG/1 ML Single Dose Vial IVPUSH ONE (08:25)
[2021-08-12] MEDS ORDERED: ROCURONIUM BROMIDE 50 MG/5 ML VIAL IVPUSH ONE (09:00)
[2021-08-12] MEDS ORDERED: PROPOFOL 200 MG/20 ML VIAL IVPUSH ONE (09:00)
[2021-08-12] MEDS: LACTATED RINGERS SOLUTION 1,000 ML/1,000 ML INFUS.BAG IV SCH (10:15)
[2021-08-12] MEDS: AMINO ACIDS/PROTEIN HYDROLYS 30 ML LIQUID.PKT PEG SCH (10:16)
[2021-08-12] MEDS: PANTOPRAZOLE SODIUM 40 MG VIAL IVPUSH SCH (10:22)
[2021-08-12] MEDS: VITAMIN B COMP W-C 1 EA TABLET (NEPHRO-VITE) PO SCH (10:30)
[2021-08-12] MEDS: AMIODARONE HCL 200 MG TABLET PEG SCH (10:30)
[2021-08-12] MEDS: ASPIRIN 81 MG CHEWABLE TABLETS PEG SCH (10:30)
[2021-08-12] MEDS: metoPROLOL SUCCINATE 25 MG TAB.SR.24H (FP) PO SCH (10:30)
[2021-08-12] MEDS: FOLIC ACID 1 MG TABLET (FP) PEG SCH (10:30)
[2021-08-12] MEDS: THIAMINE HCL 100 MG TABLET (FP) NR SCH (12:30)
[2021-08-12] MEDS ORDERED: morphine CARPU-JECT 4 MG/1 ML DISP.SYRIN IVPUSH SCH (18:45)
[2021-08-12] MEDS: ATORVASTATIN CA 40 MG TABLET (FP) PEG SCH (22:58)
[2021-08-12] MEDS: CHLORHEXIDINE GLUCONATE 4% CLEANSER FOR DECOLONIZATION TP SCH (22:58)
[2021-08-13] MEDS: HEPARIN NA (PORCINE) 5,000 UNITS/ML 1ML VIAL SQ SCH (06:38)
[2021-08-13 07:29] LABS: HEMATOCRIT 22.4 % (35.4-49); HEMOGLOBIN 7.3 GM/dL (11.7-16.9); MCHC 32.5 g/dl (32.0-35.9); MEAN CELL VOLUME 92.2 fl (80-96); MEAN PLT VOLUME 8.6 fl (7.5-11.1); PLATELET COUNT 94 10^3/uL (134-434); RBC 2.43 M/mm3 (4.00-5.60); RDW 15.4 % (11.9-15.9); WHITE BLOOD COUNT 8.2 K/mm3 (4.0-10.0)
[2021-08-13 07:38] LABS: BLOOD UREA NITROGEN 30.9 mg/dL (7-18); CALCIUM 8.7 mg/dL (8.5-10.1); MAGNESIUM 2.5 mg/dL (1.8-2.4)
[2021-08-13 07:41] LABS: CREATININE 2.5 mg/dL (0.55-1.3); PHOSPHOROUS 3.4 mg/dL (2.5-4.9)
[2021-08-13] MEDS: AMINO ACIDS/PROTEIN HYDROLYS 30 ML LIQUID.PKT PEG SCH (09:31)
[2021-08-13] MEDS: AMIODARONE HCL 200 MG TABLET PEG SCH (10:01)
[2021-08-13] MEDS: PANTOPRAZOLE SODIUM 40 MG VIAL IVPUSH SCH (10:01)
[2021-08-13] MEDS: ASPIRIN 81 MG CHEWABLE TABLETS PEG SCH (10:01)
[2021-08-13] MEDS: VITAMIN B COMP W-C 1 EA TABLET (NEPHRO-VITE) PO SCH (10:01)
[2021-08-13] MEDS: THIAMINE HCL 100 MG TABLET (FP) NR SCH (10:01)
[2021-08-13] MEDS: FOLIC ACID 1 MG TABLET (FP) PEG SCH (10:02)
[2021-08-13] MEDS: metoPROLOL SUCCINATE 25 MG TAB.SR.24H (FP) PO SCH (10:02)
[2021-08-13] MEDS ORDERED: SODIUM CHLORIDE 250 ML IV PRN (12:24)
[2021-08-13] MEDS ORDERED: EPOETIN ALFA-EPBX 10,000 UNIT/ML VIAL SQ ONE (13:15)
[2021-08-13] MEDS: APIXABAN 2.5 MG TABLET PO SCH (21:30)
[2021-08-13] MEDS: CHLORHEXIDINE GLUCONATE 4% CLEANSER FOR DECOLONIZATION TP SCH (21:30)
[2021-08-13] MEDS: ATORVASTATIN CA 40 MG TABLET (FP) PEG SCH (21:30)
[2021-08-14] MEDS ORDERED: ALBUTEROL SO4 0.042% IH SOL 1.25 MG/3 ML VIAL.NEB NEB PRN (01:59)
[2021-08-14] MEDS ORDERED: SCOPOLAMINE HYDROBROMIDE 1 PATCH PATCH.TD72 TD SCH (02:00)
[2021-08-14 07:35] LABS: CALCIUM 8.2 mg/dL (8.5-10.1)
[2021-08-14 07:36] LABS: BLOOD UREA NITROGEN 19.3 mg/dL (7-18); MAGNESIUM 1.9 mg/dL (1.8-2.4)
[2021-08-14 07:39] LABS: CREATININE 1.8 mg/dL (0.55-1.3)
[2021-08-14 07:59] LABS: HEMATOCRIT 18.7 % (35.4-49); MCH 30.5 pg (25.7-33.7); MCHC 33.2 g/dl (32.0-35.9); MEAN CELL VOLUME 91.7 fl (80-96); MEAN PLT VOLUME 8.8 fl (7.5-11.1); PLATELET COUNT 84 10^3/uL (134-434); RBC 2.04 M/mm3 (4.00-5.60); RDW 15.5 % (11.9-15.9); WHITE BLOOD COUNT 7.3 K/mm3 (4.0-10.0)
[2021-08-14 08:27] LABS: HEMOGLOBIN 6.2 GM/dL (11.7-16.9)
[2021-08-14] MEDS: AMINO ACIDS/PROTEIN HYDROLYS 30 ML LIQUID.PKT PEG SCH (09:40)
[2021-08-14] MEDS: PANTOPRAZOLE SODIUM 40 MG VIAL IVPUSH SCH (09:41)
[2021-08-14] MEDS: VITAMIN B COMP W-C 1 EA TABLET (NEPHRO-VITE) PO SCH (09:42)
[2021-08-14] MEDS: AMIODARONE HCL 200 MG TABLET PEG SCH (09:42)
[2021-08-14] MEDS: APIXABAN 2.5 MG TABLET PO SCH ×2 (09:42→21:45)
[2021-08-14] MEDS: metoPROLOL SUCCINATE 25 MG TAB.SR.24H (FP) PO SCH (09:43)
[2021-08-14] MEDS: THIAMINE HCL 100 MG TABLET (FP) NR SCH (09:43)
[2021-08-14] MEDS: FOLIC ACID 1 MG TABLET (FP) PEG SCH (09:43)
[2021-08-14] MEDS ORDERED: SODIUM CHLORIDE 250 ML IV PRN (14:07)
[2021-08-14] MEDS ORDERED: FUROSEMIDE 40 MG/4 ML INJECTABLE VIAL IVPUSH ONE (14:08)
[2021-08-14] MEDS ORDERED: ACETAMINOPHEN 1000 MG/100 ML BAG IVPB ONE (14:34)
[2021-08-14] MEDS: CHLORHEXIDINE GLUCONATE 4% CLEANSER FOR DECOLONIZATION TP SCH (21:45)
[2021-08-14] MEDS: ATORVASTATIN CA 40 MG TABLET (FP) PEG SCH (21:45)
[2021-08-15] MEDS ORDERED: SODIUM CHLORIDE 250 ML IV PRN (01:23)
[2021-08-15] MEDS ORDERED: ALBUTEROL SO4 0.042% IH SOL 1.25 MG/3 ML VIAL.NEB NEB PRN (01:23)
[2021-08-15] MEDS ORDERED: EPOETIN ALFA-EPBX 10,000 UNIT/ML VIAL IVPUSH ONE ×2 (07:45→14:07)
[2021-08-15 09:15] LABS: BASO % 1.1 % (0-2.0); EOS % 2.7 % (0-4.5); HEMATOCRIT 20.9 % (35.4-49); LYMPH % 17.3 % (8-40); MCH 30.2 pg (25.7-33.7); MCHC 33.5 g/dl (32.0-35.9); MEAN CELL VOLUME 90.4 fl (80-96); MEAN PLT VOLUME 8.1 fl (7.5-11.1); MONO % 7.3 % (3.8-10.2); NEUT % 71.6 % (42.8-82.8); PLATELET COUNT 84 10^3/uL (134-434); RBC 2.31 M/mm3 (4.00-5.60); RDW 16.7 % (11.9-15.9); WHITE BLOOD COUNT 6.7 K/mm3 (4.0-10.0)
[2021-08-15 09:32] LABS: ALBUMIN 1.3 g/dl (3.4-5.0); BLOOD UREA NITROGEN 28.3 mg/dL (7-18); CALCIUM 8.5 mg/dL (8.5-10.1); MAGNESIUM 2.1 mg/dL (1.8-2.4)
[2021-08-15 09:35] LABS: CREATININE 2.4 mg/dL (0.55-1.3)
[2021-08-15 09:36] LABS: BILIRUBIN,TOTAL 0.4 mg/dL (0.2-1); TOT PROT 5.7 g/dl (6.4-8.2)
[2021-08-15] MEDS: AMINO ACIDS/PROTEIN HYDROLYS 30 ML LIQUID.PKT PEG SCH (11:05)
[2021-08-15] MEDS: metoPROLOL SUCCINATE 25 MG TAB.SR.24H (FP) PO SCH (11:05)
[2021-08-15] MEDS: PANTOPRAZOLE SODIUM 40 MG VIAL IVPUSH SCH (11:05)
[2021-08-15] MEDS: VITAMIN B COMP W-C 1 EA TABLET (NEPHRO-VITE) PO SCH (11:06)
[2021-08-15] MEDS: FOLIC ACID 1 MG TABLET (FP) PEG SCH (11:14)
[2021-08-15] MEDS: THIAMINE HCL 100 MG TABLET (FP) NR SCH (11:14)
[2021-08-15] MEDS: AMIODARONE HCL 200 MG TABLET PEG SCH (11:27)
[2021-08-15] MEDS: APIXABAN 2.5 MG TABLET PO SCH ×2 (11:27→21:16)
[2021-08-15] MEDS: ATORVASTATIN CA 40 MG TABLET (FP) PEG SCH (21:12)
[2021-08-15] MEDS ORDERED: CHLORHEXIDINE GLUCONATE 4% CLEANSER FOR DECOLONIZATION TP SCH (22:00)
[2021-08-16 07:57] LABS: BASO % 1.2 % (0-2.0); EOS % 2.3 % (0-4.5); HEMATOCRIT 21.5 % (35.4-49); HEMOGLOBIN 7.2 GM/dL (11.7-16.9); LYMPH % 17.2 % (8-40); MCH 29.8 pg (25.7-33.7); MCHC 33.3 g/dl (32.0-35.9); MEAN CELL VOLUME 89.7 fl (80-96); MEAN PLT VOLUME 8.3 fl (7.5-11.1); MONO % 7.7 % (3.8-10.2); NEUT % 71.6 % (42.8-82.8); PLATELET COUNT 87 10^3/uL (134-434); RDW 16.3 % (11.9-15.9); WHITE BLOOD COUNT 6.6 K/mm3 (4.0-10.0)
[2021-08-16 08:20] LABS: CHLORIDE 102 mmol/L (98-107); SODIUM 138 mmol/L (136-145)
[2021-08-16 08:24] LABS: ALBUMIN 1.4 g/dl (3.4-5.0); ANION GAP 3 MMOL/L (8-16); CALCIUM 8.5 mg/dL (8.5-10.1); CO2 33 mmol/L (21-32); GLUCOSE,RANDOM 96 mg/dL (74-106)
[2021-08-16 08:25] LABS: MAGNESIUM 1.8 mg/dL (1.8-2.4)
[2021-08-16 08:28] LABS: SGOT/AST 10 U/L (15-37)
[2021-08-16 08:29] LABS: BILIRUBIN,TOTAL 0.4 mg/dL (0.2-1); TOT PROT 6.2 g/dl (6.4-8.2)
[2021-08-16 08:30] LABS: ALK PHOS 105 U/L (45-117)
[2021-08-16 08:52] LABS: SGPT/ALT < 6 U/L (13-61)
[2021-08-16] MEDS: PANTOPRAZOLE SODIUM 40 MG VIAL IVPUSH SCH (10:27)
[2021-08-16] MEDS: THIAMINE HCL 100 MG TABLET (FP) NR SCH (10:28)
[2021-08-16] MEDS: metoPROLOL SUCCINATE 25 MG TAB.SR.24H (FP) PO SCH (10:28)
[2021-08-16] MEDS: FOLIC ACID 1 MG TABLET (FP) PEG SCH (10:29)
[2021-08-16] MEDS: AMIODARONE HCL 200 MG TABLET PEG SCH (10:29)
[2021-08-16] MEDS: VITAMIN B COMP W-C 1 EA TABLET (NEPHRO-VITE) PO SCH (10:29)
[2021-08-16] MEDS: AMINO ACIDS/PROTEIN HYDROLYS 30 ML LIQUID.PKT PEG SCH (10:30)
[2021-08-16] MEDS: APIXABAN 2.5 MG TABLET PO SCH ×2 (10:31→21:06)
[2021-08-16] MEDS ORDERED: FUROSEMIDE 40 MG/4 ML INJECTABLE VIAL IVPUSH ONE (12:30)
[2021-08-16] MEDS ORDERED: FUROSEMIDE 40 MG/4 ML INJECTABLE VIAL ONE (14:39)
[2021-08-16] MEDS: ATORVASTATIN CA 40 MG TABLET (FP) PEG SCH (21:06)
[2021-08-17] MEDS: AMINO ACIDS/PROTEIN HYDROLYS 30 ML LIQUID.PKT PEG SCH (09:53)
[2021-08-17] MEDS: PANTOPRAZOLE SODIUM 40 MG VIAL IVPUSH SCH (09:53)
[2021-08-17] MEDS: metoPROLOL SUCCINATE 25 MG TAB.SR.24H (FP) PO SCH (09:54)
[2021-08-17] MEDS: THIAMINE HCL 100 MG TABLET (FP) NR SCH (09:55)
[2021-08-17] MEDS: AMIODARONE HCL 200 MG TABLET PEG SCH (09:55)
[2021-08-17] MEDS: APIXABAN 2.5 MG TABLET PO SCH ×2 (09:55→22:16)
[2021-08-17] MEDS: VITAMIN B COMP W-C 1 EA TABLET (NEPHRO-VITE) PO SCH (09:55)
[2021-08-17] MEDS: FOLIC ACID 1 MG TABLET (FP) PEG SCH (09:55)
[2021-08-17] MEDS: SCOPOLAMINE HYDROBROMIDE 1 PATCH PATCH.TD72 TD SCH (09:56)
[2021-08-17 12:01] LABS: BASO % 1.2 % (0-2.0); HEMATOCRIT 20.1 % (35.4-49); LYMPH % 18.5 % (8-40); MCH 29.5 pg (25.7-33.7); MCHC 32.6 g/dl (32.0-35.9); MEAN CELL VOLUME 90.5 fl (80-96); MEAN PLT VOLUME 8.7 fl (7.5-11.1); MONO % 6.4 % (3.8-10.2); NEUT % 69.9 % (42.8-82.8); PLATELET COUNT 88 10^3/uL (134-434); RBC 2.22 M/mm3 (4.00-5.60); RDW 16.1 % (11.9-15.9); WHITE BLOOD COUNT 5.4 K/mm3 (4.0-10.0)
[2021-08-17 12:12] LABS: HEMOGLOBIN 6.5 GM/dL (11.7-16.9)
[2021-08-17 12:21] LABS: CHLORIDE 101 mmol/L (98-107); INR 1.34 (0.83-1.09); PROTHROMBIN TIME (PATIENT) 15.5 SEC (9.7-13.0); SODIUM 138 mmol/L (136-145)
[2021-08-17 12:32] LABS: CALCIUM 9.4 mg/dL (8.5-10.1); GLUCOSE,RANDOM 100 mg/dL (74-106)
[2021-08-17 12:33] LABS: ALBUMIN 1.5 g/dl (3.4-5.0); ANION GAP 4 MMOL/L (8-16); BLOOD UREA NITROGEN 35.2 mg/dL (7-18); CO2 33 mmol/L (21-32); MAGNESIUM 2.2 mg/dL (1.8-2.4)
[2021-08-17 12:36] LABS: CREATININE 2.8 mg/dL (0.55-1.3); SGOT/AST 10 U/L (15-37); SGPT/ALT < 6 U/L (13-61)
[2021-08-17 12:37] LABS: BILIRUBIN,TOTAL 0.3 mg/dL (0.2-1); TOT PROT 6.2 g/dl (6.4-8.2)
[2021-08-17 12:38] LABS: ALK PHOS 103 U/L (45-117)
[2021-08-17] MEDS: ACETAMINOPHEN 325 MG TABLET (FP) PO PRN (14:21)
[2021-08-17] MEDS: ATORVASTATIN CA 40 MG TABLET (FP) PEG SCH (22:16)
[2021-08-18] MEDS ORDERED: SODIUM CHLORIDE 250 ML IV PRN (07:00)
[2021-08-18] MEDS ORDERED: EPOETIN ALFA-EPBX 10,000 UNIT/ML VIAL SQ ONE (07:00)
[2021-08-18 09:09] LABS: BASO % 1.1 % (0-2.0); EOS % 4.3 % (0-4.5); HEMATOCRIT 20.1 % (35.4-49); MCH 30.2 pg (25.7-33.7); MCHC 33.9 g/dl (32.0-35.9); MEAN PLT VOLUME 9.1 fl (7.5-11.1); MONO % 5.9 % (3.8-10.2); NEUT % 71.7 % (42.8-82.8); PLATELET COUNT 85 10^3/uL (134-434); RBC 2.26 M/mm3 (4.00-5.60); RDW 16.5 % (11.9-15.9); WHITE BLOOD COUNT 5.7 K/mm3 (4.0-10.0)
[2021-08-18 09:15] LABS: CHLORIDE 102 mmol/L (98-107); SODIUM 139 mmol/L (136-145)
[2021-08-18 09:18] LABS: CALCIUM 8.7 mg/dL (8.5-10.1)
[2021-08-18 09:19] LABS: ALBUMIN 1.4 g/dl (3.4-5.0); ANION GAP 7 MMOL/L (8-16); BLOOD UREA NITROGEN 42.3 mg/dL (7-18); CO2 30 mmol/L (21-32); GLUCOSE,RANDOM 95 mg/dL (74-106)
[2021-08-18 09:22] LABS: CREATININE 3.3 mg/dL (0.55-1.3); SGOT/AST 9 U/L (15-37)
[2021-08-18 09:22] LABS: HEMOGLOBIN 6.8 GM/dL (11.7-16.9)
[2021-08-18 09:24] LABS: BILIRUBIN,TOTAL 0.7 mg/dL (0.2-1)
[2021-08-18 09:29] LABS: ALK PHOS 105 U/L (45-117)
[2021-08-18 09:32] LABS: TOT PROT 5.7 g/dl (6.4-8.2)
[2021-08-18 09:41] LABS: SGPT/ALT < 6 U/L (13-61)
[2021-08-18 10:12] LABS: BASO % 2.5 % (0-2.0); EOS % 3.6 % (0-4.5); HEMATOCRIT 22.3 % (35.4-49); HEMOGLOBIN 7.3 GM/dL (11.7-16.9); LYMPH % 18.7 % (8-40); MCH 29.3 pg (25.7-33.7); MCHC 32.8 g/dl (32.0-35.9); MEAN CELL VOLUME 89.4 fl (80-96); MEAN PLT VOLUME 9.1 fl (7.5-11.1); MONO % 4.8 % (3.8-10.2); NEUT % 70.4 % (42.8-82.8); PLATELET COUNT 75 10^3/uL (134-434); RBC 2.49 M/mm3 (4.00-5.60); RDW 16.1 % (11.9-15.9); WHITE BLOOD COUNT 4.8 K/mm3 (4.0-10.0)
[2021-08-18] MEDS: AMINO ACIDS/PROTEIN HYDROLYS 30 ML LIQUID.PKT PEG SCH (11:00)
[2021-08-18] MEDS: PANTOPRAZOLE SODIUM 40 MG VIAL IVPUSH SCH (12:34)
[2021-08-18] MEDS: APIXABAN 2.5 MG TABLET PO SCH ×2 (12:35→21:52)
[2021-08-18] MEDS: AMIODARONE HCL 200 MG TABLET PEG SCH (12:35)
[2021-08-18] MEDS: THIAMINE HCL 100 MG TABLET (FP) NR SCH (12:35)
[2021-08-18] MEDS: FOLIC ACID 1 MG TABLET (FP) PEG SCH (12:35)
[2021-08-18] MEDS: VITAMIN B COMP W-C 1 EA TABLET (NEPHRO-VITE) PO SCH (12:35)
[2021-08-18] MEDS: metoPROLOL SUCCINATE 25 MG TAB.SR.24H (FP) PO SCH (12:36)
[2021-08-18] MEDS: ACETAMINOPHEN 325 MG TABLET (FP) PO PRN (12:36)
[2021-08-18] MEDS: ATORVASTATIN CA 40 MG TABLET (FP) PEG SCH (21:52)
[2021-08-18] MEDS: VANCOMYCIN 250 MG/5 ML ORAL SOLUTION PEG SCH (22:50)
[2021-08-19] MEDS: VANCOMYCIN 250 MG/5 ML ORAL SOLUTION PEG SCH ×5 (03:13→23:50)
[2021-08-19] MEDS: metoPROLOL SUCCINATE 25 MG TAB.SR.24H (FP) PO SCH (06:41)
[2021-08-19] MEDS: AMINO ACIDS/PROTEIN HYDROLYS 30 ML LIQUID.PKT PEG SCH (07:58)
[2021-08-19 08:42] LABS: BASO % 0.2 % (0-2.0); EOS % 3.4 % (0-4.5); HEMATOCRIT 24.6 % (35.4-49); HEMOGLOBIN 8.1 GM/dL (11.7-16.9); LYMPH % 15.2 % (8-40); MCH 29.7 pg (25.7-33.7); MCHC 32.7 g/dl (32.0-35.9); MEAN CELL VOLUME 90.9 fl (80-96); MEAN PLT VOLUME 8.8 fl (7.5-11.1); MONO % 7.7 % (3.8-10.2); NEUT % 73.5 % (42.8-82.8); PLATELET COUNT 77 10^3/uL (134-434); RBC 2.71 M/mm3 (4.00-5.60); RDW 16.7 % (11.9-15.9); WHITE BLOOD COUNT 6.3 K/mm3 (4.0-10.0)
[2021-08-19] MEDS: THIAMINE HCL 100 MG TABLET (FP) NR SCH (09:05)
[2021-08-19] MEDS: FOLIC ACID 1 MG TABLET (FP) PEG SCH (09:05)
[2021-08-19] MEDS: APIXABAN 2.5 MG TABLET PO SCH ×2 (09:05→22:10)
[2021-08-19] MEDS: PANTOPRAZOLE SODIUM 40 MG VIAL IVPUSH SCH (09:05)
[2021-08-19] MEDS: VITAMIN B COMP W-C 1 EA TABLET (NEPHRO-VITE) PO SCH (09:05)
[2021-08-19 09:18] LABS: BLOOD UREA NITROGEN 30.7 mg/dL (7-18); CALCIUM 9.6 mg/dL (8.5-10.1); MAGNESIUM 2.1 mg/dL (1.8-2.4)
[2021-08-19 09:20] LABS: CREATININE 2.4 mg/dL (0.55-1.3)
[2021-08-19 09:22] LABS: BILIRUBIN,TOTAL 0.5 mg/dL (0.2-1)
[2021-08-19 09:23] LABS: TOT PROT 6.7 g/dl (6.4-8.2)
[2021-08-19 09:27] LABS: ALBUMIN 1.7 g/dl (3.4-5.0)
[2021-08-19 14:07] LABS: SARS-CoV-2 NAA Not Detected (Not Detected)
[2021-08-19] MEDS: ATORVASTATIN CA 40 MG TABLET (FP) PEG SCH (22:10)
[2021-08-20] MEDS: VANCOMYCIN 250 MG/5 ML ORAL SOLUTION PEG SCH ×3 (05:32→17:16)
[2021-08-20] MEDS ORDERED: SODIUM CHLORIDE 250 ML IV PRN (10:00)
[2021-08-20] MEDS ORDERED: EPOETIN ALFA-EPBX 10,000 UNIT/ML VIAL IVPUSH ONE (10:00)
[2021-08-20 10:58] LABS: EOS % 3.7 % (0-4.5); HEMATOCRIT 24.1 % (35.4-49); HEMOGLOBIN 7.8 GM/dL (11.7-16.9); LYMPH % 16.7 % (8-40); MCH 29.8 pg (25.7-33.7); MCHC 32.4 g/dl (32.0-35.9); MEAN PLT VOLUME 9.2 fl (7.5-11.1); MONO % 7.4 % (3.8-10.2); NEUT % 70.2 % (42.8-82.8); PLATELET COUNT 84 10^3/uL (134-434); RBC 2.62 M/mm3 (4.00-5.60); RDW 16.3 % (11.9-15.9); WHITE BLOOD COUNT 6.2 K/mm3 (4.0-10.0)
[2021-08-20 11:17] LABS: CHLORIDE 103 mmol/L (98-107); SODIUM 139 mmol/L (136-145)
[2021-08-20 11:19] LABS: CALCIUM 9.6 mg/dL (8.5-10.1)
[2021-08-20 11:20] LABS: ALBUMIN 1.6 g/dl (3.4-5.0); ANION GAP 4 MMOL/L (8-16); BLOOD UREA NITROGEN 47.4 mg/dL (7-18); CO2 32 mmol/L (21-32); GLUCOSE,RANDOM 93 mg/dL (74-106); MAGNESIUM 2.2 mg/dL (1.8-2.4)
[2021-08-20 11:23] LABS: CREATININE 3.1 mg/dL (0.55-1.3); SGOT/AST 9 U/L (15-37); SGPT/ALT < 6 U/L (13-61)
[2021-08-20 11:25] LABS: BILIRUBIN,TOTAL 1.2 mg/dL (0.2-1); TOT PROT 6.5 g/dl (6.4-8.2)
[2021-08-20 11:26] LABS: ALK PHOS 92 U/L (45-117)
[2021-08-20 14:16] VITALS: PULSE 94
[2021-08-20] MEDS: metoPROLOL SUCCINATE 25 MG TAB.SR.24H (FP) PO SCH (15:08)
[2021-08-20] MEDS: PANTOPRAZOLE SODIUM 40 MG VIAL IVPUSH SCH (15:08)
[2021-08-20] MEDS: THIAMINE HCL 100 MG TABLET (FP) NR SCH (15:08)
[2021-08-20] MEDS: FOLIC ACID 1 MG TABLET (FP) PEG SCH (15:09)
[2021-08-20] MEDS: AMINO ACIDS/PROTEIN HYDROLYS 30 ML LIQUID.PKT PEG SCH (15:10)
[2021-08-20] MEDS: APIXABAN 2.5 MG TABLET PO SCH (15:11)
[2021-08-20] MEDS: SCOPOLAMINE HYDROBROMIDE 1 PATCH PATCH.TD72 TD SCH (15:11)
[2021-08-20] MEDS: VITAMIN B COMP W-C 1 EA TABLET (NEPHRO-VITE) PO SCH (15:11)
[2021-08-20 19:11] VITALS: BP 138/97; TEMP 99.5
== END 2021-08-20 19:44 | DRG 870 ==
LOC: JER 13:54 → JERBED 19:57 → JICU 08-01 01:13 → J5S 08-14 23:16
PROVIDERS: ADMIT Hospitalist
PROC: 5A1955Z Respiratory Ventilation, Greater than 96 Consecutive Hours (ICD-10-PCS; principal; 2021-07-31)
PROC: 30233N1 Transfusion of Nonautologous Red Blood Cells into Peripheral Vein, Percutaneous Approach (ICD-10-PCS; 2021-07-31)
PROC: 3E0G76Z Introduction of Nutritional Substance into Upper GI, Via Natural or Artificial Opening (ICD-10-PCS; 2021-07-31)
PROC: 5A1D70Z Performance of Urinary Filtration, Intermittent, Less than 6 Hours Per Day (ICD-10-PCS; 2021-08-04)
PROC: 5A1D70Z Performance of Urinary Filtration, Intermittent, Less than 6 Hours Per Day (ICD-10-PCS; 2021-08-06)
PROC: 5A1D70Z Performance of Urinary Filtration, Intermittent, Less than 6 Hours Per Day (ICD-10-PCS; 2021-08-11)
PROC: 0BJ08ZZ Inspection of Tracheobronchial Tree, Via Natural or Artificial Opening Endoscopic (ICD-10-PCS; 2021-08-12)
PROC: 0B21XFZ Change Tracheostomy Device in Trachea, External Approach (ICD-10-PCS; 2021-08-12)
PROC: 5A1D70Z Performance of Urinary Filtration, Intermittent, Less than 6 Hours Per Day (ICD-10-PCS; 2021-08-18)
PROC: 5A1D70Z Performance of Urinary Filtration, Intermittent, Less than 6 Hours Per Day (ICD-10-PCS; 2021-08-20)
DX: A41.89 Other specified sepsis (principal); J96.21 Acute and chronic respiratory failure with hypoxia; J96.22 Acute and chronic respiratory failure with hypercapnia; G92.9 Unspecified toxic encephalopathy; N18.6 End stage renal disease; J15.1 Pneumonia due to Pseudomonas; J95.851 Ventilator associated pneumonia; J98.11 Atelectasis; E87.2 Acidosis; D62 Acute posthemorrhagic anemia; A04.72 Enterocolitis due to Clostridium difficile, not specified as recurrent; H70.93 Unspecified mastoiditis, bilateral; I95.9 Hypotension, unspecified; D64.9 Anemia, unspecified; R00.0 Tachycardia, unspecified; E87.6 Hypokalemia; E88.09 Other disorders of plasma-protein metabolism, not elsewhere classified; E83.42 Hypomagnesemia; D69.6 Thrombocytopenia, unspecified; D63.1 Anemia in chronic kidney disease; E78.5 Hyperlipidemia, unspecified; E87.70 Fluid overload, unspecified; L89.159 Pressure ulcer of sacral region, unspecified stage; I48.0 Paroxysmal atrial fibrillation; D72.829 Elevated white blood cell count, unspecified; Z93.0 Tracheostomy status; Z99.2 Dependence on renal dialysis
CPT/HCPCS: 36415; 36430; 36511; 36600; 70450-TC; 71045-TC-FY; 80048; 80053; 80061; 82272; 82550; 82553; 82803; 82962; 83605; 83735; 84100; 84436; 84443; 84484; 85025; 85027; 85610; 85730; 86803; 86850; 86900; 86901; 86922; 87040; 87070; 87186; 87205; 87324; 87340; 87449; 90670; 90686; 93005; 93010; 93306-TC; 94002; 94640; 97161-GP; 99291; C9803; G0008; G0009; J1644; P9038; P9058; Q5106; U0003; U0005